=== PATIENT | male | born 1995 | race Caucasian/White ===

== ENCOUNTER 2017-10-01 15:37 | Emergency (ER) | payer OTHER ==
--- NOTE | 2017-10-01 15:50 | ED Physician Documentation ---
PD HPI SKIN - Stated complaint Stated Complaint: ABD BLISTER - Chief complaint Chief Complaint: Heent - History obtained from History obtained from: Patient - History of Present Illness Timing - onset: How many days ago (4) Timing - duration: Days (4) Timing - details: Gradual onset, Still present (started as a small pimple like lesion and has expanded to a cluster of small pustules. Very tender.) Location: Abdomen (lower left abd wall.) Quality / character: Painful, Vesicular, Draining (purulent) Review of Systems Constitutional: denies: Fever, Chills GI: denies: Nausea, Vomiting, Diarrhea : denies: Dysuria, Discharge PD PAST MEDICAL HISTORY - Past Medical History Cardiovascular: None Respiratory: None Neuro: None Endocrine/Autoimmune: None - Present Medications Home Medications: Ambulatory Orders Medication Instructions Recorded Confirmed Mupirocin 1 applic TP TID #15 oint...g. 10/01/17 Sulfamethox/Trimeth 800/160 1 each PO BID #14 tablet 10/01/17 [Bactrim Ds 800/160] - Allergies Allergies/Adverse Reactions: Allergies Allergy/AdvReac Type Severity Reaction Status Date / Time No Known Drug Allergies Allergy Verified 10/01/17 15:48 PD ED PE NORMAL - Vitals Vital signs reviewed: Yes - General General: Alert and oriented X 3, No acute distress, Well developed/nourished - Abdomen Abdomen: Normal bowel sounds, Soft, Non distended, No organomegaly, Other ( lower left abdomen with skin lesion of patch of small pustules with red base. No drainage right now. No induration nor subcut fluid collection felt. ) - Male Male : Other (small red bump dorsal base of penis. No other lesions. Meatus is normal. ) Results - Vitals Vitals: Vital Signs - 24 hr 10/01/17 10/01/17 15:45 16:00 Temperature 36.9 C 36.4 C L Heart Rate 114 H 79 Respiratory 16 20 Rate Blood Pressure 150/75 H 121/81 H O2 Saturation 98 100 Oxygen O2 Source Room air - Labs Labs: Microbiology 10/01/17 16:19 Wound Culture - Preliminary Abdomen PD MEDICAL DECISION MAKING - ED course Complexity details: considered differential (looks likely superficial staph, but given the small cluster of lesions, could consider herpetic, just unusual location. ), d/w patient Departure - Departure Disposition: Home, Self Care Clinical Impression: Impetigo any site Abdominal wall skin ulcer Qualifiers: Non-pressure ulcer stage: limited to breakdown of skin Qualified Code(s): L98.491 - Non-pressure chronic ulcer of skin of other sites limited to breakdown of skin Condition: Stable Record reviewed to determine appropriate education?: Yes Instructions: ED Staph Infec Abx Tx Only Prescriptions: Mupirocin 1 applic TP TID #15 oint...g. Sulfamethox/Trimeth 800/160 [Bactrim Ds 800/160] 1 each PO BID #14 tablet Comments: I think this looks more like a bacterial skin infection, likely staph aureus, but we do have cultures and tests running 4 viral cause as well. These will result in 2-3 days. We will call you if they are abnormal. For now would have you clean the infection area 2-3 times a day with soap and water and apply mupirocin topical antibiotic to the sores. Also take oral antibiotic Bactrim twice daily for 5-7 days until fully gone. Tylenol or ibuprofen if needed for pains. Recheck if not improved well over the next few days. Discharge Date/Time: 10/01/17 16:35
[2017-10-01 16:01] VITALS: BP 121/81
[2017-10-01] MEDS ORDERED: SULFAMETH/TRIMETH DS 800/160 MG TABLET PO STA (16:21)
[2017-10-01] MEDS ORDERED: MUPIROCIN 2% OINT 1 GM TOP STA (16:21)
[2017-10-05 10:01] LABS: HSV 2 DNA NOT DETECTED; SOURCE ABD
== END 2017-10-01 16:35 | disposition home or self-care (01) ==
LOC: ED 15:37
DX: L01.00 Impetigo, unspecified (principal); L98.491 Non-pressure chronic ulcer of skin of other sites limited to breakdown of skin
CPT/HCPCS: 87070; 87205; 87529; 99283; A9270; 87252

== ENCOUNTER 2018-04-22 22:02 | Emergency (ER) | payer OTHER ==
[2018-04-22] MEDS ORDERED: BUFFERED LIDOCAINE 10 ML SYRINGE SUBQ STA (22:14)
--- NOTE | 2018-04-22 22:16 | ED Physician Documentation ---
PD HPI UPPER EXT INJURY - Stated complaint Stated Complaint: R FINGER LAC - Chief complaint Chief Complaint: Laceration - History obtained from History obtained from: Patient - History of Present Illness Location: Right (Right-handed gentleman who is up-to-date on tetanus cut his right pinky finger with a knife ACCIDENTALLY at home just prior to arrival.) Review of Systems Constitutional: reports: Reviewed and negative Throat: reports: Reviewed and negative Cardiac: reports: Reviewed and negative PD PAST MEDICAL HISTORY - Past Medical History Past Medical History: No Cardiovascular: None Respiratory: None Endocrine/Autoimmune: None - Past Surgical History Past Surgical History: Yes - Present Medications Home Medications: Ambulatory Orders Medication Instructions Recorded Confirmed Mupirocin 1 applic TP TID #15 oint...g. 10/01/17 Sulfamethox/Trimeth 800/160 1 each PO BID #14 tablet 10/01/17 [Bactrim Ds 800/160] - Allergies Allergies/Adverse Reactions: Allergies Allergy/AdvReac Type Severity Reaction Status Date / Time No Known Drug Allergies Allergy Verified 04/22/18 22:13 - Social History Does the pt smoke?: No Smoking Status: Never smoker Does the pt drink ETOH?: No Does the pt have substance abuse?: No - Immunizations Immunizations are current?: Yes - POLST Patient has POLST: No PD ED PE NORMAL - Vitals Vital signs reviewed: Yes - General General: Alert and oriented X 3, No acute distress - Extremities Extremities: Other (Right pinky: On the dorsomedial side there is a linear horizontal 1 cm laceration through the skin, with normal neurovascular status of the tip.) - Neuro Neuro: Alert and oriented X 3, Normal speech Results - Vitals Vitals: Vital Signs - 24 hr 04/22/18 22:05 Temperature 36.0 C L Heart Rate 77 Respiratory 16 Rate Blood Pressure 118/77 O2 Saturation 100 Oxygen O2 Source Room air Procedures - Laceration (location) R 5th finger Length in cm: 1 Wound type: Linear Neurovascular status: Sensory intact, Motor intact, Vascular intact Tendon involvement: Tendon intact Anesthesia: Lidocaine 1%, With bicarb Wound Preparation: Hibiclens, Irrigated copiously NS Skin layer closure: Nylon, Interrupted, Size #-0 - enter number (5-0), Sutures - enter # (2) Other: Patient tolerated well, No complications, Neurovascular intact, Tetanus UTD Complexity: Simple PD MEDICAL DECISION MAKING - Sepsis Event Vital Signs: Vital Signs - 24 hr 04/22/18 22:05 Temperature 36.0 C L Heart Rate 77 Respiratory 16 Rate Blood Pressure 118/77 O2 Saturation 100 Oxygen O2 Source Room air Departure - Departure Disposition: 01 Home, Self Care Clinical Impression: Laceration Condition: Good Record reviewed to determine appropriate education?: Yes Instructions: ED Laceration Hand Comments: Come back for any signs of infection which would include: Redness, swelling, drainage, increased pain, or fevers. Follow-up with your physician in 14 days for suture removal. Forms: Activity restrictions
[2018-04-22 22:38] VITALS: BP 128/72
== END 2018-04-22 22:40 | disposition home or self-care (01) ==
LOC: ED 22:02
DX: S61.216A Laceration without foreign body of right little finger without damage to nail, initial encounter (principal); W26.0XXA Contact with knife, initial encounter; Y93.89 Activity, other specified; Y92.009 Unspecified place in unspecified non-institutional (private) residence as the place of occurrence of the external cause
CPT/HCPCS: 12001; 99283